=== PATIENT | female | born 1980 | race Caucasian/White ===

== ENCOUNTER 2016-11-01 12:37 | Emergency (ER) | payer OTHER | END 2016-11-01 14:20 | disposition home or self-care (01) | LOC: CED 12:37 | DX: A08.4 Viral intestinal infection, unspecified (principal); F17.200 Nicotine dependence, unspecified, uncomplicated | CPT/HCPCS: 99282 ==

== ENCOUNTER 2017-02-14 13:14 | Emergency (ER) | payer OTHER ==
--- NOTE | ~2017-02-14 | CT2 ---
[facility] A Service of [facility] RADIOLOGY TEXT RESULTS PATIENT: ISRAEL SIMPSON LOCATION: [facility] : 80 UNIT #: [id number] AGE: [address]: Barbie Arce APRN SEX: F ORDER DR: [id number] [facility] [address] [place], [place] [address] [id number] MR#: [id number] Acc #: [id number] NAME: ISRAEL SIMPSON : 1980 SEX: F STUDY DATE/TIME: 02/14/2017 15:44 UNIT: [facility] ROOM: STUDY DESCRIPTION: CT Abd and Pelv W Cont Attending Physician: Barbie Arce A.P.R.N. Referring Physician: Rene Verduzco M.D. Ordering Physician: Jose Luis Funes M.D. Primary Care Physician: Mariah Friedman [facility] IMAGING REPORT This report is preliminary unless electronic signature is present EXAM Abdomen and pelvis CT with contrast, 02/14/2017. INDICATIONS 36-year-old female with abdominal pain and rectal pain. Intravaginal/pelvic mass. History of tubal ligation. Symptoms 2-3 days. TECHNIQUE Contrast enhanced CT of the abdomen and pelvis was performed. This CT exam was performed with one or more of the following radiation dose reduction techniques: automatic exposure control, adjustment of mA and/or kV according to patient size, and iterative reconstruction. COMPARISON We have no comparisons. FINDINGS CT ABDOMEN: Included lung bases are clear. No effusion. Aorta demonstrates no aneurysm or dissection. The spleen, adrenal glands and pancreas are unremarkable. Gallbladder unremarkable. There is mild fatty infiltration of the liver. Kidneys demonstrate no hydronephrosis or inflammatory change. There is some mild cortical scarring in the right kidney. CT PELVIS: The patient is status post tubal ligation. Bladder unremarkable. No drainable fluid collection in the pelvis or adnexal mass. There are follicles in both ovaries. There is minimal diverticulosis of the sigmoid colon. Bowel otherwise unremarkable and the appendix is normal. Inguinal canals unremarkable. Osseous structures intact. IMPRESSION [facility] A Service of [facility] RADIOLOGY TEXT RESULTS PATIENT: ISRAEL SIMPSON LOCATION: [facility] : 80 UNIT #: [id number] AGE: [address]: Barbie Arce APRN SEX: F ORDER DR: 1. No clearly acute process in the abdomen or pelvis. No bowel obstruction drainable fluid collection or focal area of inflammatory change. The appendix is normal. 2. Fatty infiltration of the liver. 3. Diverticulosis. 4. Incidental ovarian follicles. Dictated by... Gilberto Up M.D. THIS IS AN ELECTRONICALLY VERIFIED REPORT Gilberto Up M.D. at 02/15/2017 7:29 AM [place] TD: 02/14/2017 18:45 JOB #: [id number] MEDICAL IMAGING REPORT Page 1 of 1 COPY
[2017-02-14 13:58] LABS: URINE SOURCE CLEAN CATCH
[2017-02-14 14:02] LABS: URINE APPEARANCE CLEAR; URINE BILIRUBIN NEG (NEG); URINE BLOOD NEG (NEG); URINE COLOR YELLOW; URINE GLUCOSE NEG (NEG); URINE KETONE NEG (NEG); URINE LEUKOCYTE ESTERASE NEG (NEG); URINE NITRATE NEG (NEG); URINE PH 7.5 (5-8); URINE PROTEIN NEG (NEG); URINE SPECIFIC GRAVITY 1.008 (1.003-1.035); URINE UROBILINOGEN 0.2 MG/DL (NEG)
[2017-02-14 14:16] LABS: CULTURE INDICATED? NO
[2017-02-14 14:46] LABS: BASOPHIL% 0.7 % (0-2.5); EOSINOPHIL# 0.1 X10e3 (0-0.7); EOSINOPHIL% 1.5 % (0.0-7.0); HEMATOCRIT 44.6 % (35.0-45.0); HEMOGLOBIN 15.1 gm/dL (12.0-16.0); LYMPHOCYTE# 2.4 X10e3 (1.0-3.5); LYMPHOCYTE% 35.6 % (17.0-45.0); MEAN CELL VOLUME 100.4 FL (83-96); MEAN CORPUSCULAR HEMOGLOBIN 33.9 PG (28-34); MEAN CORPUSCULAR HGB CONC 33.8 g/dL (30-36); MEAN PLATELET VOLUME 7.7 FL (6.5-11.5); MONOCYTE# 0.3 X10e3 (0-1.0); MONOCYTE% 4.9 % (3.0-12.0); NEUTROPHIL# 3.9 X10e3 (1.5-7.1); NEUTROPHIL% 57.3 % (40-75); PLATELET COUNT 267 X10e3 (140-420); RED BLOOD COUNT 4.44 X10e (3.90-5.30); RED CELL DISTRIBUTION WIDTH 14.4 % (11.0-15.5); WHITE BLOOD COUNT 6.8 X10e3 (4.0-10.5)
[2017-02-14 14:47] LABS: DIFF IND NO
[2017-02-14 15:16] LABS: ALBUMIN SERUM 4.6 g/dL (3.5-5.0); BILIRUBIN,TOTAL 0.6 mg/dL (0.2-2.0); CALCIUM SERUM 9.1 mg/dL (8.4-10.2); CREATININE SERUM 0.5 mg/dL (0.6-1.4); GLOM FILT RATE Estimated 124.5 mL/min (>60); POTASSIUM 3.7 mmol/L (3.5-5.1); PROTEIN TOTAL SERUM 7.7 g/dL (6.0-8.3)
[2017-02-16 23:41] LABS: CHLAMYDIA TRACH Not Detected (Not Detected); N GONOR Not Detected (Not Detected)
== END 2017-02-14 17:15 | disposition home or self-care (01) ==
LOC: CFTX 13:14 → CED 13:14 → CFTX 14:03
PROVIDERS: Nurse Practitioner
DX: N89.9 Noninflammatory disorder of vagina, unspecified (principal); Z98.51 Tubal ligation status; F17.200 Nicotine dependence, unspecified, uncomplicated; G40.509 Epileptic seizures related to external causes, not intractable, without status epilepticus
CPT/HCPCS: 36415; 74177; 80053; 81003; 84703; 85025; 87491; 87591; 87808; 87905; 99284; J1885; Q9967